=== PATIENT | male | born 1990 | race Hispanic/Latino ===

== ENCOUNTER 2017-03-31 20:45 | Emergency (ER) | payer OTHER ==
[2017-03-31 21:01] VITALS: BP 120/70; PULSE 78; RESP 18; TEMP 98.3; O2SAT 98
[2017-03-31] MEDS ORDERED: Lidocaine 2% Inj (20ml) SC ONE (21:12)
[2017-03-31] MEDS ORDERED: Lidocaine 1% Inj (20ml) ONE (21:14)
[2017-03-31] MEDS ORDERED: Lidocaine 1% Inj (20ml) IJ ONE (21:15)
--- NOTE | 2017-03-31 21:23 | ED PDOC ---
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 He complains that the wound was bleeding persistently for 1 hour, which prompted his visit here. No numbness, decreased ROM, or other complaint. Tetanus is not UTD. Past Medical History Vital Signs: Last Vital Signs Temp 98.3 F 03/31/17 20:57 Pulse 78 03/31/17 20:57 Resp 18 03/31/17 20:57 BP 120/70 03/31/17 20:57 Pulse Ox 98 03/31/17 20:57 - Medical History PMH: No Chronic Diseases - Surgical History Surgical History: No Surg Hx - Family History Family History: States: Unknown Family Hx - Allergies Allergies/Adverse Reactions: Allergies Allergy/AdvReac Type Severity Reaction Status Date / Time ibuprofen Allergy SWELLING Verified 03/31/17 20:57 Review of Systems Musculoskeletal: Positive for: Hand Pain Skin: Positive for: Lesions Neurological: Negative for: Weakness, Numbness Physical Exam - Physical Exam Appears: Positive for: Well, Non-toxic, No Acute Distress Skin: Positive for: Warm, Dry. Negative for: Normal Color (1 cm laceration to the medial aspect of the distal 4th digit on the right hand. ) Extremity: Positive for: Normal ROM (No decreased ROM of the right 4th DIP or PIP) - ECG O2 Sat by Pulse Oximetry: 98 (RA) - Progress ED Course And Treament: TD 0.5 ML IM Medical Decision Making Medical Decision Making: Impression: Laceration Plan: - Update Tetanus - Laceration Repair - Digital Block Patient tolerated the procedure well without complaint. All questions answered. Patient discharged in stable condition with discharge and return precautions. Scribe Attestation Documented by Catherine Harrington acting as a scribe for Sindi Jeffery PA-C. Provider Attestation All medical record entries made by the Scribe were at my direction and personally dictated by me. I have reviewed the chart and agree that the record accurately reflects my personal performance of the history, physical exam, medical decision making, and the department course for this patient. I have also personally directed, reviewed, and agree with the discharge instructions and disposition. Procedures - Laceration/Wound Repair Laceration Repair Wound Length (cm): 1 Wound's Depth, Shape: superficial, linear Wound Explored: clean Betadine Prep?: Yes Anesthesia: 1% Lidocaine Wound Repaired With: Sutures Suture Size/Type: 5:0, nylon Number of Sutures: 2 Layer Closure?: Yes Wound Complexity: Simple Sterile Dressing Applied?: Yes Progress: Patient tolerated the procedure well. Disposition - Clinical Impression Clinical Impression: Finger laceration - Patient ED Disposition Is Patient to be Admitted: No - Disposition Disposition: Routine/Home Disposition Time: 21:54 Condition: FAIR Additional Instructions: RETURN TO ED OR F/U WITH PMD IN 7 DAYS FOR REMOVAL OF SUTURES Instructions: Finger Laceration (ED) Forms: [employer] (Indonesian) Procedure: Wound Repair - Time Performed Time Performed: 21:53 - Time Out Time Out: Site verified - Consent Obtained Consent obtained: Verbal - Performed by Performed by: Mid-level Provider - Indications Indication(s):: Laceration - Location Location:: Right Finger:: Ring Shape:: Linear Dimensions Length cm: 1.0cm Depth:: Epidermis - Anesthetic Technique Anesthetic Technique: Regional block Local/Regional Anesthetic:: Lidocaine 1% - Irrigated Irrigated with ml of normal saline: 100ml - Complexity Complexity:: Simple (one layer) - Wound repair method Sutures:: # (three), Size (5-0 nylon), Technique (interrupted) - Patient tolerated procedure Patient Tolerated Procedure:: Well
== END 2017-03-31 22:01 | disposition home or self-care (01) ==
LOC: H.ER 20:45
DX: S61.214A Laceration without foreign body of right ring finger without damage to nail, initial encounter (principal); W26.8XXA Contact with other sharp object(s), not elsewhere classified, initial encounter; Y92.89 Other specified places as the place of occurrence of the external cause